=== PATIENT | female | born 1960 | race Caucasian/White ===

== ENCOUNTER 2021-03-10 07:20 | Inpatient (IN) | payer SELFPAY ==
[2021-03-10] VITALS (166 sets, daily range): BP systolic 94–114; BP diastolic 71–85; PULSE 130–140; TEMP 97.3–98; O2SAT 73–100
[~2021-03-10] VITALS: Ht 162.6 cm; Wt 87.6 kg
[~2021-03-10 07:20] MED LIST: ALDACTONE 25MG25 M1 PO; BENICAR 20MG TA20 MG PO; CLEOCIN HC150 MG/CAP PO; DUO-KAPS1 CAP PO; ELIQUIS 5MG PO; FOLIC ACID 11 MG/TA1 PO; HCTZ12.5TAB PO; IMODIUM 2MG CAPS2 MG PO; LASIX 20MG TABL20 MG PO; LEVAQUIN 5500 MG/TAB PO; LEVAQUIN 750MG750 M1 PO; LOPRESSOR 225 MG/TAB PO; LOTENSIN 1010 MG/TAB PO; LOTENSIN HCT 101 TAB PO; LOTENSIN20 MG PO; NORCO 325 MG-101 TAB PO; NORVASC 10MG10 MG PO; PERCOCET 325 MG1 TA2 PO; PREDNISONE20 MG PO; PRINIVIL5 MG PO; PROAIR HFA0.09 MG/AC IH; PROTONIX 40MG T40 MG PO; THIAMINE 1100 MG/TAB PO; TUMS500 MG PO; VICODIN 5/5001 UDTAB PO; XANAX .25M0.25 MG/TA PO
[2021-03-10 08:02] LABS: BASO # 0.1 K/mm3 (0.0-0.2); BASO % 0.9 % (0.0-2.0); EOS # 0.1 K/mm3 (0.0-0.7); EOS % 0.7 % (0.0-4.0); HEMATOCRIT 44.1 % (37.0-47.0); HEMOGLOBIN 14.5 g/dl (12.5-16.0); LYMPH # 3.5 K/mm3 (1.2-3.4); LYMPH % 49.2 % (20.0-51.0); MEAN CELL VOLUME 91 fl (80.0-100.0); MEAN CORPUSCULAR HEMOGLOBIN 30 pg (27-31); MEAN CORPUSCULAR HGB CONC 33 g/dl (33.0-37.0); MEAN PLATELET VOLUME 10.2 fl (7.4-10.4); MONO # 0.4 K/mm3 (0.1-0.6); MONO % 6.1 % (1.7-9.3); PLATELET COUNT 241 K/mm3 (130-400); RED BLOOD COUNT 4.86 M/mm3 (4.10-5.30); REDCELL DISTRIBUTION WIDTH-CV 15.2 % (11.5-14.5)
[2021-03-10 08:49] LABS: ALBUMIN 3.3 gm/dL (3.5-5.0); BILIRUBIN,TOTAL 1.4 mg/dL (0.2-1.2); CALCIUM 8.4 mg/dL (8.4-10.2); CREATININE, serum 1.07 mg/dL (0.57-1.11); MAGNESIUM 1.8 mg/dL (1.6-2.6); PHOSPHOROUS 4.4 mg/dL (2.3-4.7); TOTAL PROTEIN 8.2 gm/dL (6.2-8.1)
[2021-03-10 09:00] LABS: TROPONIN-I 0.079 ng/mL (0.00-0.033)
--- NOTE | 2021-03-10 11:43 | NUR ---
RECEIVED REPORT FROM DIONICIO GONZALEZ. AWAITING ARRIVAL OF PT TO ICU 7.
--- NOTE | 2021-03-10 11:58 | NUR ---
PT ARRIVES TO ICU 7 VIA STRETCHER ON 3L VIA NC. ALL PERSONAL BELONGINGS PLACED IN CLOSET. CELL PHONE AND CITY CARRIER WITHIN REACH. PT ABLE TO STAND TO TRANSFER TO BSC AND THEN TO THE BED WITH X1 ASSIST. CALL LIGHT WITHIN REACH. PLACED ON BEDSIDE CONTINUOUS MONITOR. NOTED HR IS IN AFLUTTER IN THE 140s CURRENTLY. BP STABLE AT THIS TIME BUT IS BOUNCING FROM HIGH 80s TO LOW 100s SYSTOLICALLY. WILL MONITOR CLOSELY.
--- NOTE | 2021-03-10 12:45 | NUR ---
DR RAMIRES AT BEDSIDE DISCUSSING POC WITH PT AND TALKING ABOUT THE NEW MEDICATION GTTS. RN DISCUSSED WITH DR RAMIRES SINCE PT REPORTS THAT SHE HAS NOT BEEN TAKING ANY MEDICATIONS SHE USED TO D/T INSURANCE INUSRANCE FROM WHEN SHE WAS WORKING IN [place] TWO YEARS AGO, THAT SHE HAS NO CURRENT MEDICATIONS AND HAS BEEN SELF MEDICATION WITH DRUGS AND ALCOHOL. PT DOES REPORT SECOND HAND METH SMOKE, USE OF MARIJUANA DAILY AND DRINKING SMIRNOFF DRINKS DAILY TO EASE THE PAIN. REPORTS LAST DRINK WAS AROUND 0400 TODAY AND DID USE MARIJUANA THIS MORNING BEFORE COMING TO THE HOSPITAL. PT STATES SHE LIVES WITH HER SON BUT HE IS GONE FOR HIS JOB FOR PERIODS OF TIME AND KNEW SHE NEEDED TO COME TO THE HOSPITAL BUT WAS WAITING FOR HIM TO COME HOME TO TAKE CARE OF THE DOG WHO DOES NOT GET ALONG WELL WITH MANY PEOPLE BEFORE SHE COULD COME TO THE HOSPITAL. PT STATES SHE KNEW ABOUT A WEEK AGO THAT SHE NEEDED TO GET TO THE HOSPITAL.
--- NOTE | 2021-03-10 13:00 | NUR ---
PT DOES REQUEST TO SPEAK TO A BOTTLE BOOTH ATTENDANT ABOUT INSURNACE SO SHE CAN GET ON MEDS WHEN DC APPROPRAITELY. BOTTLE BOOTH ATTENDANT RANJAN CALLED AT THIS TIME AND MADE AWARE OF REQUEST. WILL AWAIT FOR HER ASSIST.
[2021-03-10 13:50] LABS: PARTIAL THROMBOPLASTIN TIME 30.2 SECONDS (26.0-37.0)
--- NOTE | 2021-03-10 16:00 | NUR ---
ASKED DR RAMIRES TO DISCUSS CODE STATUS WITH PT. SHE DOES SAY DNR BUT WANTS TO THINK ABOUT DNI. PT IS VERY NAUSEOUS DURING DR RAMIRES'S TALK AND KEEPS SAYING " I JUST DO NOT FEEL WELL." PT IS VERY TEARFUL. EXPLAINED TO PT THAT SHE IS ALSO GOING THROUGH WITHDRAWAL ALONG WITH HER HEART FUNCTION NOT DOING SO WELL AND THAT WE ARE MONITORING HER VERY CLOSELY. PT STATES SHE IS SCARED AND ANXIOUS. SEE MAR.
--- NOTE | 2021-03-10 22:30 | NUR ---
1950 RECEIVED PHONE CALL FROM LAB WITH CRITICAL LEVEL OF HEPARIN XA OF 1.21, PLACED HEPARIN DRIP ON HOLD PER PROTOCOL FOR 2 HOURS WILL REDRAW HEPARIN XA AND PTT AT 2150. RESULTS OF HEPARIN XA OBTAINED AT 2150 NOTED RESULTED AT THIS TIME, WITH LEVEL OF 0.47, PER PROTOCOL RESTARTED AT 300 UNITS/HR LESS THAN PREVIOUS DOSE OF 1500 UNITS/HR MAKING NEW DOSE 1200 UNITS/HR, RECHECK WILL BE AT 0430 ON 03/11/21
--- NOTE | 2021-03-10 23:15 | NUR ---
2315 NOTIFIED BY MARIBELL FROM LAB THAT PTT AND HEPARIN XA BLUE TOP LAB TUBE THAT WAS SENT TO LAB AT 2150 WAS "SHORT OF BLOOD AND RESULTS COULD NOT BE RUN" ASKED ABOUT RESULTS THAT WERE POSTED FOR HEPARIN XA ALREADY AND STATED THAT HE WAS GOING TO CANCEL THEM AND RUN THEM ON THE NEW SAMPLE, EXPLAINED THAT MEDICATION ADJUSTMENTS HAD BEEN MADE BASED ON LEVEL THAT WAS POSTED FOR HEPARIN XA OF 0.47. 2319 NEW SAMPLE OBTAINED AND TAKEN TO LAB, MARIBELL WHO WAS WALKING DOWN HALLWAY REQUESTED FOR THIS NURSE TO LEAVE IT ON COUNTER, CAMILO RANG TIMES 2 WITH NO ANSWER SO LEFT ON COUNTER REQUESTED
[2021-03-10 23:56] LABS: COLLECTION METHOD CLEAN CATCH
[2021-03-11] VITALS: BP 118/99; PULSE 131; TEMP 97.7
[2021-03-11 00:20] LABS: PARTIAL THROMBOPLASTIN TIME 104.4 SECONDS (26.0-37.0)
[2021-03-11 00:22] LABS: MUCOUS Present (NOT PRESENT); PH 5 (5-8); TRICYCLIC ANTIDEPRESS URINE NEGATIVE; URINE APPEARANCE Hazy (CLEAR/HAZY); URINE BACTERIA Rare /hpf (NONE SEEN); URINE BILIRUBIN Positive (NEGATIVE); URINE BLOOD 1+ (NEGATIVE); URINE COLOR Amber (YELLOW); URINE GLUCOSE Negative (NEGATIVE); URINE KETONE Negative (NEGATIVE); URINE LEUKOCYTE ESTERASE Negative (NEGATIVE); URINE NITRATE Negative (NEGATIVE); URINE PROTEIN(semi-quant) 2+ (NEGATIVE); URINE UROBILINOGEN >=4.0 (NEGATIVE)
--- NOTE | 2021-03-11 00:58 | NUR ---
NOTIFIED LELIA BLACKWELL OF PRIOR EVENTS WITH HEPARIN XA LEVELS AND CURRENT LEVEL OK PER HER TO OBTAIN HEPARIN XA AT PREVIOUSLY SCHEDULED TIME 03/11/21 1289
[2021-03-11 04:00] VITALS: BP 112/94; PULSE 129; TEMP 97.6
[2021-03-11 04:33] LABS: BASO # 0.1 K/mm3 (0.0-0.2); BASO % 0.7 % (0.0-2.0); GRAN # 5.1 K/mm3 (1.4-6.5); GRAN % 68.3 % (42.2-75.2); HEMATOCRIT 40.7 % (37.0-47.0); HEMOGLOBIN 13.2 g/dl (12.5-16.0); LYMPH # 1.6 K/mm3 (1.2-3.4); LYMPH % 21.5 % (20.0-51.0); MEAN CELL VOLUME 92 fl (80.0-100.0); MEAN CORPUSCULAR HEMOGLOBIN 30 pg (27-31); MEAN CORPUSCULAR HGB CONC 32 g/dl (33.0-37.0); MEAN PLATELET VOLUME 9.8 fl (7.4-10.4); MONO # 0.7 K/mm3 (0.1-0.6); MONO % 9.2 % (1.7-9.3); PLATELET COUNT 180 K/mm3 (130-400); RED BLOOD COUNT 4.45 M/mm3 (4.10-5.30); REDCELL DISTRIBUTION WIDTH-CV 15.2 % (11.5-14.5)
[2021-03-11 04:50] LABS: ALBUMIN 2.8 gm/dL (3.5-5.0); CREATININE, serum 1.64 mg/dL (0.57-1.11); MAGNESIUM 1.7 mg/dL (1.6-2.6); POTASSIUM 4.6 mmol/L (3.5-4.5); TOTAL PROTEIN 6.5 gm/dL (6.2-8.1)
[2021-03-11 05:05] LABS: THYROID STIMULATING HORMONE 1.844 uIU/mL (0.350-4.940)
[2021-03-11 05:15] LABS: TROPONIN-I 0.072 ng/mL (0.00-0.033)
--- NOTE | 2021-03-11 07:27 | NUR ---
RECEIVED BEDSIDE SHIFT REPORT FROM DIONICIO BRITO. PATIENT IS IN BED ON 6L NASAL CANNULA. VITAL SIGNS HAVE BEEN BORDERLINE UNSTABLE. WILL HAVE ECHOCARDIOGRAM TODAY. HAS BEEN ASYMPTOMATIC AND TOLERATING. WILL ASSESS FURTHER. STILL ON HEPARIN DRIP AND AMIODARONE.
[2021-03-11 08:00] VITALS: BP 105/93; PULSE 128; TEMP 96.7
--- NOTE | 2021-03-11 09:03 | NUR ---
DR. RAMIRES AT BEDSIDE. EXPLAINED TO DR. RAMIRES ABOUT PATIENT'S STORY REGARDING MEDICATION REGIMEN PATIENT USES FOR PAIN. DR. RAMIRES TO INVESTIGATE FURTHER.
--- NOTE | 2021-03-11 09:33 | NUR ---
DR. MANRIQUE AT BEDSIDE. WANTING TO SCHEDULE CARDIOVERSION AND COLE TODAY. WILL CALL ANESTHESIA.
--- NOTE | 2021-03-11 09:35 | NUR ---
CALLED CEE IN RADIOLOGY REGARDING COLE CARDIOVERSION.
--- NOTE | 2021-03-11 09:35 | NUR ---
CALLED DR. MANRIQUE TO UPDATE ON TIME FOR COLE/CARDIOVERSION FOR NOW.
--- NOTE | 2021-03-11 09:35 | NUR ---
CALLED ANESTHESIA REGARDING COLE/CARDIOVERSION. SHASTA ECHEVERRIA SAID HE COULD DO IT NOW. WILL SET UP.
--- NOTE | 2021-03-11 09:43 | NUR ---
ANESTHESIA AT BEDSIDE AND HAD FOUND THAT PATIENT HAD HAD BREAKFAST AND WILL RESCHEDULE FOR 1500 TODAY.
--- NOTE | 2021-03-11 10:24 | NUR ---
Head Gauge Unit Operator met with patient to discuss discharge planning. Patient lives in [place] with her son, Prasad (ph#[phone]). Patient states she has lived in [place] for a couple years but [place] is "home" for her and she would eventually like to return there. Patient does not have a current primary care physician and has difficulty affording medications due to lack of insurance. SW consulted David, Financial Counselor. SW also provided [facility] Resource Guide along with drug and alcohol resources. Patient had positive UDS however said that she has been using drugs because she no longer is being prescribed pain medications like she was in [place]. SW advised patient that both [facility] and [facility] can offer primary care without insurance coverage. Patient does not use any DME and is normally independent with ADLS. Patient mentions that she walks her dog daily. Patient does not have Advance Directives but is considering designating her friend, Shruthi Flor (ph#[phone]) who is an RN in [place] as DPOA-HC, however would like to speak with Shruthi about this first. Patient is not and has one child, Prasad. Patient states her parents are but that she has two brothers and a sister. Patient plans to return home upon discharge. Patient advised she has court at 1430 for an "eviction" that is "BS". SW contacted Santa at [facility] [address] and confirmed this, then faxed a document stating that patient is currently hospitalized and cannot attend court today. Discharge Plan: Home with son, may need medication voucher
[2021-03-11 12:00] VITALS: BP 110/92; PULSE 128
--- NOTE | 2021-03-11 14:20 | NUR ---
UPDATED PATIENT'S SISTER LUCIO ON PLAN OF CARE.
--- NOTE | 2021-03-11 15:43 | NUR ---
EVERYONE GATHERED FOR UPDATED COLE/CARDIOVERSION TIME. DID A TIME OUT AT 1513, MEDS WERE PUSHED AT 1515, COLE WAS PERFORMED AND SHOCK WAS DELIVERED AT 1527. PATIENT CONVERTED TO NORMAL SINUS RHYTHYM IN THE 80s. PATIENT HAD TO TAKE MORE TIME TO RECOVER FROM ANESTHESIA. DR. MANRIQUE ORDERED FOR LASIX GTT AND THIS NURSE WAS CONCERNED FOR BLOOD PRESSURE ISSUES CONSIDERING PATIENT WAS HYPOTENSIVE. DR. MANRIQUE CONFORTABLE STILL INITIATING THERAPY.
[2021-03-11 16:00] VITALS: BP 85/70; PULSE 81
--- NOTE | 2021-03-11 16:20 | NUR ---
CALLED DR. MANRIQUE AND EXPRESSED CONCERNS REGARDING INITIATION OF LASIX DRIP WITH HYPOTENSION. AGREEABLE TO LOWER DOSE. ALSO DISCUSSED SWITCHING TO PO ARRYTHMIC DRUGS AND BEGINNING PO ANTICOAGULATION IN A.M. ORDERS PLACED.
--- NOTE | 2021-03-11 18:33 | NUR ---
PATIENT'S SISTER CALLED TO SEE HOW CARDIOVERSION WENT. UPDATED AND ALLOWED SISTER TO SPEAK WITH PATIENT.
[2021-03-12] VITALS (7 sets, daily range): BP systolic 93–120; BP diastolic 62–92; PULSE 71–99; TEMP 97.5–98.9
[2021-03-12 05:18] LABS: BASO % 0.6 % (0.0-2.0); EOS % 0.1 % (0.0-4.0); GRAN # 4.7 K/mm3 (1.4-6.5); GRAN % 70.3 % (42.2-75.2); HEMOGLOBIN 12.3 g/dl (12.5-16.0); LYMPH # 1.4 K/mm3 (1.2-3.4); LYMPH % 20.1 % (20.0-51.0); MEAN CELL VOLUME 90 fl (80.0-100.0); MEAN CORPUSCULAR HEMOGLOBIN 30 pg (27-31); MEAN CORPUSCULAR HGB CONC 34 g/dl (33.0-37.0); MEAN PLATELET VOLUME 10.4 fl (7.4-10.4); MONO # 0.6 K/mm3 (0.1-0.6); MONO % 8.8 % (1.7-9.3); PLATELET COUNT 132 K/mm3 (130-400); RED BLOOD COUNT 4.08 M/mm3 (4.10-5.30); REDCELL DISTRIBUTION WIDTH-CV 15.3 % (11.5-14.5)
[2021-03-12 05:31] LABS: HEMATOCRIT 36.7 % (37.0-47.0)
[2021-03-12 05:34] LABS: CALCIUM 7.7 mg/dL (8.4-10.2); CREATININE, serum 1.33 mg/dL (0.57-1.11)
--- NOTE | 2021-03-12 15:13 | NUR ---
REPORT GIVEN TO DIONICIO CRUZ. DISCUSSED CURRENT PLAN OF CARE, GTTS AND INFUSIONS, AND ACCESS. ALL QUESTIOSN ANSWERED. PT WILL BE GOING TO RM 353.
[2021-03-13] VITALS (7 sets, daily range): BP systolic 85–105; BP diastolic 62–78; PULSE 54–69; TEMP 96.8–98.3; O2SAT 100
[2021-03-13 06:46] LABS: BASO % 0.6 % (0.0-2.0); EOS % 0.6 % (0.0-4.0); GRAN # 3.3 K/mm3 (1.4-6.5); GRAN % 60.9 % (42.2-75.2); HEMOGLOBIN 11.3 g/dl (12.5-16.0); LYMPH # 1.5 K/mm3 (1.2-3.4); LYMPH % 27.9 % (20.0-51.0); MEAN CELL VOLUME 92 fl (80.0-100.0); MEAN CORPUSCULAR HEMOGLOBIN 30 pg (27-31); MEAN CORPUSCULAR HGB CONC 33 g/dl (33.0-37.0); MEAN PLATELET VOLUME 10.9 fl (7.4-10.4); MONO # 0.5 K/mm3 (0.1-0.6); MONO % 9.4 % (1.7-9.3); PLATELET COUNT 122 K/mm3 (130-400); RED BLOOD COUNT 3.76 M/mm3 (4.10-5.30); REDCELL DISTRIBUTION WIDTH-CV 15.5 % (11.5-14.5)
[2021-03-13 06:47] LABS: HEMATOCRIT 34.5 % (37.0-47.0)
[2021-03-13 07:05] LABS: CALCIUM 7.8 mg/dL (8.4-10.2); CREATININE, serum 1.19 mg/dL (0.57-1.11); MAGNESIUM 1.3 mg/dL (1.6-2.6)
--- NOTE | 2021-03-13 07:40 | NUR ---
CRITICAL CHLORIDE OF 88 CALLED TO MALATHI MERAZ
--- NOTE | 2021-03-13 08:30 | NUR ---
Shift assessment complete. Pt sitting up on side of bed eating breakfast. A&Ox4. Heart RRR. Lungs CTA. Sats 93% RA. Generalized mottling and 2+ edema. Denies needs at this time. Continuing to monitor.
--- NOTE | 2021-03-13 10:15 | NUR ---
Received call from hospitalist asking if pt had been minimally responsive this morning as she was not opening eyes or talking during rounds. Went to bedside w/hospitalist team. Pt yelled in response to sternal chest rub but would not open eyes. Pupils sluggish. Vitals obtained and ABG ordered. BP at this time 108/64, HR 65, SpO2 88% on RA. NC placed on at 2 lpm w/sats increasing to 92%. RT at bedside to obtain ABG and pt suddenly A&Ox4. Up working w/PT and OT at this time.
[2021-03-13 10:28] LABS: ARTERIAL BLD GAS O2 SATURATION 96.8 % (92-100); ARTERIAL BLD GAS TCO2 CT 29.2; ARTERIAL BLOOD GAS BASE EXCESS 3.4 (-2-2); ARTERIAL BLOOD GAS PCO2 42.2 mmHg (35-45); ARTERIAL BLOOD GAS PO2 84.3 mmHg (80-100); ARTERIAL BLOOD GAS pH 7.44 (7.35-7.45)
--- NOTE | 2021-03-13 22:48 | NUR ---
Patient assessed around 2049. Alert and oriented x 4. Reports pain to bilateral feet, too soon to give [place], declined APAP. On oxygen at 1 L/min via NC. Telemetry in place. Generalized edema all over with 1+ BUE/trunk, 3+ BLE. Voices no questions, needs, or concerns at this time. Continues on Lasix drip per orders. In bed with call light within reach. Bed alarm on.
[2021-03-14 04:44] VITALS: BP 100/75; PULSE 65; TEMP 98.7
--- NOTE | 2021-03-14 06:05 | NUR ---
Received PRN [place] as requested for pain to legs and feet. Continues on Lasix drip. Voices no questions, needs or concerns at this time. In bed with call light within reach.
[2021-03-14 06:22] LABS: BASO % 0.2 % (0.0-2.0); EOS % 0.5 % (0.0-4.0); GRAN # 2.6 K/mm3 (1.4-6.5); GRAN % 61.2 % (42.2-75.2); HEMOGLOBIN 11.4 g/dl (12.5-16.0); LYMPH % 24.4 % (20.0-51.0); MEAN CELL VOLUME 91 fl (80.0-100.0); MEAN CORPUSCULAR HEMOGLOBIN 30 pg (27-31); MEAN CORPUSCULAR HGB CONC 33 g/dl (33.0-37.0); MEAN PLATELET VOLUME 10.8 fl (7.4-10.4); MONO # 0.6 K/mm3 (0.1-0.6); PLATELET COUNT 120 K/mm3 (130-400); RED BLOOD COUNT 3.85 M/mm3 (4.10-5.30); REDCELL DISTRIBUTION WIDTH-CV 15.6 % (11.5-14.5)
[2021-03-14 06:24] LABS: HEMATOCRIT 34.9 % (37.0-47.0)
[2021-03-14 06:36] LABS: CALCIUM 7.8 mg/dL (8.4-10.2); CREATININE, serum 1.08 mg/dL (0.57-1.11); MAGNESIUM 1.5 mg/dL (1.6-2.6); POTASSIUM 3.8 mmol/L (3.5-4.5)
[2021-03-14 07:14] VITALS: BP 113/72; PULSE 72; TEMP 97.5
--- NOTE | 2021-03-14 10:20 | NUR ---
Patient requested PRN xanax w/ her morning meds. Patient continues to use bedside commode and is a SBA. Patient does not have any complaints this morning.
[2021-03-14 13:01] VITALS: BP 104/69; PULSE 68; TEMP 97.4
[2021-03-14 17:19] VITALS: BP 112/76; PULSE 66; TEMP 98.2
--- NOTE | 2021-03-14 17:58 | NUR ---
Patient has done well today, and is very pleasant. Patient has a TLIJ on the right side, w/ 2 peripheral IVs in the ACs. These were removed as they were leaky. Patient assisted w/ bed bath by PCT.
[2021-03-14 20:03] VITALS: BP 108/82; PULSE 63; TEMP 97.5
--- NOTE | 2021-03-14 22:57 | NUR ---
Patient assessed around 1954. Alert and oriented, and able to make needs known. Reports leve 8 pain to BLE. TLC to right IJ. Given PRN Xanax as requested. Given PRN [place] around 2249. Continues to have 3+ edema to BLE, 1+ to BUE. Continues on no free water restriction. Voices no further questions, needs, or concerns at this time. In bed with call light within reach.
[2021-03-14 23:21] VITALS: BP 111/77; PULSE 65; TEMP 97.8
[2021-03-15 04:59] VITALS: BP 111/77; PULSE 67; TEMP 97.9
[2021-03-15 06:08] LABS: BASO % 0.4 % (0.0-2.0); EOS % 0.4 % (0.0-4.0); GRAN # 2.6 K/mm3 (1.4-6.5); GRAN % 57.2 % (42.2-75.2); HEMOGLOBIN 11.6 g/dl (12.5-16.0); LYMPH # 1.3 K/mm3 (1.2-3.4); LYMPH % 27.5 % (20.0-51.0); MEAN CELL VOLUME 89 fl (80.0-100.0); MEAN CORPUSCULAR HEMOGLOBIN 30 pg (27-31); MEAN CORPUSCULAR HGB CONC 34 g/dl (33.0-37.0); MEAN PLATELET VOLUME 10.1 fl (7.4-10.4); MONO # 0.7 K/mm3 (0.1-0.6); MONO % 14.1 % (1.7-9.3); PLATELET COUNT 133 K/mm3 (130-400); RED BLOOD COUNT 3.85 M/mm3 (4.10-5.30); REDCELL DISTRIBUTION WIDTH-CV 15.9 % (11.5-14.5)
[2021-03-15 06:12] LABS: HEMATOCRIT 34.4 % (37.0-47.0)
--- NOTE | 2021-03-15 06:12 | NUR ---
Patient recieved PRN [place] and Xanax as requested during the night. Has voiced no further questions, needs, or concerns at this time. In bed with call light within reach.
[2021-03-15 06:29] LABS: CALCIUM 8.1 mg/dL (8.4-10.2); CREATININE, serum 0.88 mg/dL (0.57-1.11); MAGNESIUM 1.6 mg/dL (1.6-2.6); POTASSIUM 4.1 mmol/L (3.5-4.5)
[2021-03-15 07:08] LABS: CREATININE, serum 0.88 mg/dL (0.57-1.11); FRACTIONAL EXCRETION OF NA+ 0.49 %
[2021-03-15 08:10] VITALS: BP 108/65; PULSE 69; TEMP 98.2
[2021-03-15] MEDS ORDERED: LIPITOR 80MG80 MG PO (08:29)
[2021-03-15] MEDS ORDERED: XARELTO20 MG PO (08:29)
[2021-03-15] MEDS ORDERED: TOPROL XL 25MG25 MG PO (08:30)
[2021-03-15] MEDS ORDERED: LASIX 40MG TABL40 MG PO (08:30)
[2021-03-15] MEDS ORDERED: ZESTRIL2.5 MG PO (08:31)
[2021-03-15] MEDS ORDERED: ASPIRIN 81M81 MG/TA2 PO (08:33)
--- NOTE | 2021-03-15 08:38 | NUR ---
Patient resting in bed upon entering the room. Does not have any complaints at this time. This RN provided the patient w/ fresh apple juice to take her medications with. Patient had already eaten breakfast, and is tolerating PO intake well. Patient moving around independtly in the room, gait is steady now that swelling has decreased in the lower extremeties.
[2021-03-15 11:46] VITALS: BP 114/71; PULSE 65; TEMP 98.1
[2021-03-15] MEDS ORDERED: PACERONE200 MG PO (11:46)
[2021-03-15 15:11] LABS: HEMATOCRIT 37.7 % (37.0-47.0); HEMOGLOBIN 12.6 g/dl (12.5-16.0)
--- NOTE | 2021-03-15 15:21 | NUR ---
The patient is to discharge back home with her son today, 03/15. The patient is in need of a medication voucher. TANG provided the patient with a medication voucher to [facility]. Total $69.55. TANG faxed the med voucher and the patient's scripts to Ernesto at [facility]. The patient reports that she will also need a ride home. She states that she would prefer to just return home and not have to stop by [employer] TANG contacted [facility] and requested that they deliver the patient's meds to her home address. [facility] reports that they can deliver the meds to her home today. TANG provided the patient's RN with the taxi voucher. The patient's RN then notified TANG that they removed her IJ line to go home. The patient then bent over and had extensive bleeding. The clinical team would like to monitor the patient for a few hours before she goes home. A transportation time home is undetermined, due to her having to stay for a few hours for monitoring and then with the taxi. [facility] closes at 1800. TANG updated Ernesto at [facility]. Ernesto reports that they can deliver the patient's medications to her home tomorrow. TANG updated the patient's RN and the patient. No additional needs at this time.
--- NOTE | 2021-03-15 16:41 | NUR ---
Patient discharged home, ride provided by [employer], voucher given by TANG. Patient was provided w/ a 3wk supply of xarelto from cardiology. Meds to be delivered to patient by [facility], medications given tonight to cover her doses. Patient escorted out by [facility]... At approx 1350 this RN pulled the patient central line. Pressure was held for appox. 10mins, and bleeding had not stopped. This RN called Yvonne - Charge, to notify her and ask for assistance. Yvonne applied pressure for approx. 10mins and bleeding stopped. Tegaderm with gauze was applied, and was CDI. Patient was instructed to lay flat for 10mins and call when she was ready to get dressed. At approx. 1420, this RN was called into the room. Upon entering the room, this RN saw the PCT sitting and holding pressure at the site. The patient's gown and pants were covered in blood, there was a small puddle of blood on the floor. Eve ROWELL, was notified and came to assess. H&H was ordered, pressure dressing applied after 30mins of manual pressure, VSS.
== END 2021-03-15 16:30 | disposition home health service (06) | DRG 280 ==
LOC: COL.ER 07:20 → ICU 10:12 → IMCU 03-11 19:17 → MEDICAL 03-12 15:25
PROVIDERS: Emergency Medicine; Physician Assistant; ADMIT Internal Medicine
PROC: 05HM33Z Insertion of Infusion Device into Right Internal Jugular Vein, Percutaneous Approach (ICD-10-PCS; principal; 2021-03-10)
PROC: 5A2204Z Restoration of Cardiac Rhythm, Single (ICD-10-PCS; 2021-03-11)
PROC: B24BZZ4 Ultrasonography of Heart with Aorta, Transesophageal (ICD-10-PCS; 2021-03-11)
DX: I11.0 Hypertensive heart disease with heart failure (principal); J96.01 Acute respiratory failure with hypoxia; I21.A1 Myocardial infarction type 2; I50.21 Acute systolic (congestive) heart failure; I48.92 Unspecified atrial flutter; I47.1 Supraventricular tachycardia; E87.1 Hypo-osmolality and hyponatremia; G89.29 Other chronic pain; F17.210 Nicotine dependence, cigarettes, uncomplicated; F10.10 Alcohol abuse, uncomplicated; I48.91 Unspecified atrial fibrillation; K21.9 Gastro-esophageal reflux disease without esophagitis; M54.30 Sciatica, unspecified side; E66.9 Obesity, unspecified; F15.10 Other stimulant abuse, uncomplicated; I34.0 Nonrheumatic mitral (valve) insufficiency; I42.9 Cardiomyopathy, unspecified; J44.9 Chronic obstructive pulmonary disease, unspecified; E83.42 Hypomagnesemia; E87.8 Other disorders of electrolyte and fluid balance, not elsewhere classified; Z20.822 Contact with and (suspected) exposure to COVID-19
CPT/HCPCS: 99223-AI; 99232-AI; 99233-AI; 99239; C1751; J0282; J1644; J1940; J2060; J2405; J2704; J3475; J7060

== ENCOUNTER 2021-05-30 17:59 | Inpatient (IN) | payer SELFPAY ==
[~2021-05-30] VITALS: Ht 152.4 cm; Wt 72.0 kg
[~2021-05-30 17:59] MED LIST changes: +ASPIRIN 81M81 MG/TA2 PO; +CEPHALEXIN500 M1 PO; +LASIX 40MG TABL40 MG PO; +LIPITOR 80MG80 MG PO; +PACERONE200 MG PO; +TOPROL XL 25MG25 MG PO; +XARELTO20 MG PO; +ZESTRIL2.5 MG PO
[2021-05-30 19:46] LABS: BASO % 0.5 % (0.0-2.0); EOS % 0.2 % (0.0-4.0); GRAN % 74.4 % (42.2-75.2); HEMATOCRIT 40.6 % (37.0-47.0); HEMOGLOBIN 13.5 g/dl (12.5-16.0); LYMPH # 1.2 K/mm3 (1.2-3.4); LYMPH % 14.9 % (20.0-51.0); MEAN CELL VOLUME 92 fl (80.0-100.0); MEAN CORPUSCULAR HEMOGLOBIN 31 pg (27-31); MEAN CORPUSCULAR HGB CONC 33 g/dl (33.0-37.0); MONO # 0.8 K/mm3 (0.1-0.6); MONO % 9.8 % (1.7-9.3); PLATELET COUNT 267 K/mm3 (130-400); RED BLOOD COUNT 4.43 M/mm3 (4.10-5.30); REDCELL DISTRIBUTION WIDTH-CV 18.4 % (11.5-14.5)
[2021-05-30 19:52] LABS: INR 1.3 (0.8-3.0); PROTHROMBIN TIME 14.5 SECONDS (9.7-12.8)
[2021-05-30 19:55] LABS: PARTIAL THROMBOPLASTIN TIME 32.9 SECONDS (26.0-37.0)
[2021-05-30 20:43] LABS: ALBUMIN 2.7 gm/dL (3.5-5.0); BILIRUBIN,TOTAL 1.6 mg/dL (0.2-1.2); CALCIUM 7.3 mg/dL (8.4-10.2); CREATININE, serum 0.68 mg/dL (0.57-1.11); TOTAL PROTEIN 6.6 gm/dL (6.2-8.1)
[2021-05-30 20:45] LABS: POTASSIUM 2.8 mmol/L (3.5-4.5)
[2021-05-30 20:49] LABS: TROPONIN-I 0.03 ng/mL (0.00-0.033)
[2021-05-30 23:06] LABS: COLLECTION METHOD CLEAN CATCH
[2021-05-30 23:15] LABS: MUCOUS Present (NOT PRESENT); PH 6 (5-8); SQUAMOUS EPITHELIAL 0-2 /hpf (0-10); URINE APPEARANCE Clear (CLEAR/HAZY); URINE BACTERIA None Seen /hpf (NONE SEEN); URINE BILIRUBIN Negative (NEGATIVE); URINE BLOOD 1+ (NEGATIVE); URINE COLOR Yellow (YELLOW); URINE GLUCOSE Negative (NEGATIVE); URINE KETONE Negative (NEGATIVE); URINE LEUKOCYTE ESTERASE Negative (NEGATIVE); URINE NITRATE Negative (NEGATIVE); URINE PROTEIN(semi-quant) Negative (NEGATIVE); URINE RBC 0-2 /hpf (0-2); URINE UROBILINOGEN >=4.0 (NEGATIVE); URINE WBC 0-2 /hpf (0-2)
[2021-05-31] VITALS (226 sets, daily range): BP systolic 106–147; BP diastolic 41–92; PULSE 80–89; TEMP 97.6–97.8; O2SAT 39–100
[2021-05-31 03:42] LABS: TRICYCLIC ANTIDEPRESS URINE NEGATIVE
[2021-05-31 05:20] LABS: CALCIUM 7.7 mg/dL (8.4-10.2); CREATININE, serum 0.77 mg/dL (0.57-1.11); POTASSIUM 3.7 mmol/L (3.5-4.5)
[2021-05-31 09:44] LABS: HEMATOCRIT 37.7 % (37.0-47.0); HEMOGLOBIN 12.5 g/dl (12.5-16.0); MEAN CELL VOLUME 91 fl (80.0-100.0); MEAN CORPUSCULAR HEMOGLOBIN 30 pg (27-31); MEAN CORPUSCULAR HGB CONC 33 g/dl (33.0-37.0); MEAN PLATELET VOLUME 9.3 fl (7.4-10.4); PLATELET COUNT 228 K/mm3 (130-400); RED BLOOD COUNT 4.15 M/mm3 (4.10-5.30); REDCELL DISTRIBUTION WIDTH-CV 18.6 % (11.5-14.5)
[2021-05-31 10:00] LABS: ANION GAP 9 mmol/L (7-16); BLOOD UREA NITROGEN 12 mg/dL (10-20); CALCIUM 7.6 mg/dL (8.4-10.2); CARBON DIOXIDE 30 mmol/L (22-29); CHLORIDE 91 mmol/L (98-107); GLUCOSE 151 mg/dL (70-99); MAGNESIUM 1.2 mg/dL (1.6-2.6); SODIUM 130 mmol/L (136-145)
[2021-05-31 10:20] LABS: LYMPHOCYTE 4 % (20.0-51.0); NEUTROPHILS 91 % (42.0-75.2)
[2021-05-31 10:21] LABS: BAND 3 % (0-10); BASOPHIL 1 % (0-2); THYROID STIMULATING HORMONE 4.855 uIU/mL (0.350-4.940); TROPONIN-I 0.022 ng/mL (0.00-0.033)
[2021-05-31 10:22] LABS: ALCOHOL(ethanol),MEDICAL < 10 mg/dL (0-10); ANISOCYTOSIS 1+; PLATELET ESTIMATE NORMAL (NORMAL)
--- NOTE | 2021-05-31 10:23 | NUR ---
material requirements worker spoke with Ela ([employer]ult [employer]) and confirmed that there is an open case at this time. Ela states that patient has been kicked out of several motels and that [facility] can [facility]. Ela provided name of "sister" in [place] (Shruthi Flor #[phone]).
--- NOTE | 2021-05-31 12:36 | NUR ---
Cryolite Recovery Operator met with patient to discuss discharge planning. Patient advised that she is homeless after being evicted from her apartment recently. Patient states she was charged with criminal tresspassing and desruction to property. Patient states she has been sleeping at the post office or in the [facility]. Pateint has a son, Prasad (ph#[phone]) that lives in [place] however patient states she cannot stay with him as he doesn't care much about her and tends to get her in trouble. Patient states that Prasad started using meth about a year ago which hasn't helped the situation. Patient states she needs help with finding a place to stay. Patient has stayed at [facility] but was recently kicked out. Patient was set up with Dr. Pickett at [facility] but has not been seen in a couple years. Patient expressed that she wants to find somewhere for her and her puppy to stay. Patient advised her dog is staying with a groomer she knew from [employer]. SW discussed Advance Directives with patient and explained that patient's son, Prasad would be her legal next of kin as she is not and has no other children. Patient does not want Prasad to make any medical decisions on her behalf and wanted to complete the DPOA-HC form designating Shruthi Flor (ph#[phone]) who lives in [place], [place]. Patient stated this is her sister. SW assisted patient in completing the form then SW and RN provided witness signature. SW placed copy in chart and provided original and copies to patient. SW discussed patient's self pay status and patient would like to apply for Medicaid. TANG consulted [facility] Financial Counselor. Discharge Plan: Unknown at this time, patient is homeless
--- NOTE | 2021-05-31 14:36 | NUR ---
Rolling Down Machine Operator contacted Shruthi Flor and notified her that patient designated her as DPOA-HC. Shruthi verbalized understanding and is agreeable to this.
[2021-05-31 19:00] LABS: CALCIUM 7.5 mg/dL (8.4-10.2); CREATININE, serum 0.74 mg/dL (0.57-1.11); MAGNESIUM 1.5 mg/dL (1.6-2.6); POTASSIUM 3.6 mmol/L (3.5-4.5)
[2021-06-01] VITALS (14 sets, daily range): BP systolic 122–150; BP diastolic 77–98; PULSE 77–89; TEMP 97.7–98.9
--- NOTE | 2021-06-01 06:20 | NUR ---
ASSESSMENT COMPLETE FOR THIS SHIFT. PT PACING THE ROOM, SEEMING REAL AGITATED AND SHACKING. PT'S ABSTINENCE SCORE WAS A 6. PT GIVEN ATIVAN. A COUPLE OF HOURS LATE, I WHEN IT TO CHECK ON PT AND HER FINGERS WERE BLUE, AND SHE WAS NOT RESPONDING TO ME SHOUTING HER NAME OR STERNUM RUB. I WAS FINIALLY ABLE TO WAKE PT, HOWEVER IT WAS HARD TO KEEP HER AWAKE AND SHE WAS FOUND TO HAVE AN O2 OF 66 THAT WENT UP TO 75 AFTER A BIT. PT PLACED ON O2, HOSPITALIST CALLED AND RESPIRATORY CALLED. PT'S O2 WAS ABLE TO RISE INTO THE HIGH 90'S ON O2. HOSPITALIST FELT THE ATIVAN WAS TO BLAME, PT WAS GIVEN 2MG ORAL. HOSPITALIST WANTED ANY ADDITIONAL ATIVAN DOSES CUT IN HALF. PT NOT GIVEN ANY MORE ATIVAN TONIGHT. PT DENIED PALPITATIONS, N,V,D OR DIZZINESS. PT CONTINUED THROUGHOUT THE NIGHT, TO DOZING OFF WHILE TALKING OR SITTING, ALMOST FELLING OFF THE BED AT TIMES. WILL CONTINUE TO MONITOR PT CLOSELY. PT EXPRESSED NO OTHER NEEDS AT THIS TIME. CALL LIGHT WITHIN REACH.
[2021-06-01 06:41] LABS: HEMOGLOBIN 11.4 g/dl (12.5-16.0); MEAN CELL VOLUME 93 fl (80.0-100.0); MEAN CORPUSCULAR HEMOGLOBIN 30 pg (27-31); MEAN CORPUSCULAR HGB CONC 33 g/dl (33.0-37.0); MEAN PLATELET VOLUME 9.3 fl (7.4-10.4); PLATELET COUNT 228 K/mm3 (130-400); RED BLOOD COUNT 3.78 M/mm3 (4.10-5.30); REDCELL DISTRIBUTION WIDTH-CV 18.5 % (11.5-14.5)
[2021-06-01 06:44] LABS: HEMATOCRIT 35.1 % (37.0-47.0)
[2021-06-01 06:57] LABS: ALBUMIN 2.6 gm/dL (3.5-5.0); BILIRUBIN,TOTAL 1.2 mg/dL (0.2-1.2); CALCIUM 7.3 mg/dL (8.4-10.2); CHOLESTEROL RISK RATIO 3.6; CREATININE, serum 0.71 mg/dL (0.57-1.11); MAGNESIUM 1.3 mg/dL (1.6-2.6); POTASSIUM 3.4 mmol/L (3.5-4.5); TOTAL PROTEIN 6.7 gm/dL (6.2-8.1)
[2021-06-01 07:16] LABS: BAND 7 % (0-10); LYMPHOCYTE 4 % (20.0-51.0); NEUTROPHILS 88 % (42.0-75.2); PLATELET ESTIMATE NORMAL (NORMAL)
[2021-06-01 07:17] LABS: ANISOCYTOSIS 1+
[2021-06-02] VITALS (8 sets, daily range): BP systolic 115–140; BP diastolic 71–96; PULSE 76–89; TEMP 97.7–99.4
[2021-06-02 06:36] LABS: CALCIUM 7.5 mg/dL (8.4-10.2); CREATININE, serum 0.73 mg/dL (0.57-1.11); MAGNESIUM 1.6 mg/dL (1.6-2.6); POTASSIUM 3.8 mmol/L (3.5-4.5)
--- NOTE | 2021-06-02 10:46 | NUR ---
PT RESTING IN BED. MORNING MEDICATIONS GIVEN. SHIFT ASSESSMENT COMPLETED. PT REQUESTING PAIN MEDICATION FOR SIATIC PAIN. PT WEEPY THIS MORNING BECAUSE OF HER HOME SITUATION AND POSSIBLY HAVING TO GIVE UP HER DOG. IS CURRENTLY ON LASIX GTT AT 5.5ML/HR. DENIES NEEDS AT THIS TIME. WOUNDS TO L BREAST IS SCABBED OVER, DISCUSSED WITH DR. RAMIRES. WILL CONTINUE TO MONITOR.
--- NOTE | 2021-06-02 17:47 | NUR ---
PT HAS HAD UNEVENTFUL DAY, SHE HAS BEEN SLEEPING THROUGHOUT MOST OF IT. DUENAS HAS BEEN DRAINING RED URINE THROUGHOUT DAY. PT NOW COMPLAINS OF 8/10 SIATICA PAIN AND REQUEST A PAIN PILL. SHE STATES IT "COMES IN WAVES." LASIX GTT HAS BEEN INFUSING AT 5.5ML/HR. WILL CONTINUE TO MONITOR.
[2021-06-03 00:22] VITALS: BP 134/90; PULSE 78; TEMP 97.9
[2021-06-03 03:16] VITALS: BP 122/81; PULSE 77; TEMP 97.8
--- NOTE | 2021-06-03 06:00 | NUR ---
ASSESSMENT COMPLETE FOR THIS SHIFT. PT IN BED DISTRESSED AND CRYING. PT COMPLAINED OF SCIATIC NERVE PAIN SHE RATED AN 8. PT GIVEN NORCO FOR PAIN. PT FELT THE NORCO WORKED GREAT FOR HER PAIN AND WANTED MORE WHEN SHE COULD GET IT. WHENEVER IT'S CLOSE TO 4HRS, PT CRIES IN PAIN AND ASKS FOR "THE NORCO." PT DENIED PALPITATIONS, N,V,D OR DIZZINESS. PT ASKED FOR FOOD AND GRAPE JUICE THOUGHOUT THE NIGHT. PT STAYED WITHIN HER 1500ML RESTRICTION ON FLUIDS. PT EXPRESSED NO OTHER NEEDS AT THIS TIME. CALL LIGHT WITHIN REACH.
[2021-06-03 06:54] LABS: CALCIUM 7.1 mg/dL (8.4-10.2); CREATININE, serum 0.73 mg/dL (0.57-1.11); MAGNESIUM 1.6 mg/dL (1.6-2.6); POTASSIUM 3.6 mmol/L (3.5-4.5)
--- NOTE | 2021-06-03 07:32 | NUR ---
FELY Jaffe NOTIFIED OF CRITICAL CHLORIDE, NO INTERVENTIONS AT THIS TIME.
[2021-06-03 07:54] VITALS: BP 137/96; PULSE 77; TEMP 97.6
--- NOTE | 2021-06-03 09:41 | NUR ---
PT SITTING UP IN BED. MORNING MEDICATIONS GIVEN. SHIFT ASSESSMENT COMPLETED. PICC LINE FLUSHES AND HAS GOOD BLOOD RETURN. PT COMPLAINS OF SIATICA PAIN, PRN PAIN MEDICATION PROVIDED. DENIES ANY OTHER NEEDS. DUENAS DRAINING YELLOW URINE WITH SMALL CLOTS. LASIX GTT INFUSING AT 5.5ML/HR. WILL CONTINUE TO MONITOR.
[2021-06-03 12:17] VITALS: BP 125/74; PULSE 76; TEMP 98.1
--- NOTE | 2021-06-03 16:10 | NUR ---
Letitia from [facility]PS called asking for a discharge update. I informed her of possible discharge tomorrow. Letitia states that the patient is restricted from [facility] until the 16th of this month. After the 16 she is able to return. Letitia reports that she has spoken with the patients sister and her sister is willing to pay to place the patient in a hotel until the . Letitia is going to speak with her spinning supervisor to see about the possibility of splitting the cost at the [employer] [facility] in [place] ($424.27 for 11 nights). I provided Letitia with the patient's toxicology screen. She will touch base tomorrow.
[2021-06-03 16:31] VITALS: BP 121/80; PULSE 71; TEMP 98.5
[2021-06-03 20:14] VITALS: BP 129/84; PULSE 77; TEMP 98.4
--- NOTE | 2021-06-03 21:52 | NUR ---
ALERT ANDOX4. DENIES SOA, CHEST PAIN OR DIZZY. REPORT LOWER BACK/SIATICA NERVER PAIN-NORCO GIVEN. OFFERED HEAT. LASIX RUNNING PER ORDER. PM MEDS. POC DISCUSSED. CALL LIGHT WI REACH.
[2021-06-04 03:54] VITALS: BP 113/67; PULSE 71; TEMP 98.3
[2021-06-04 04:02] VITALS: BP 18/57; PULSE 76; TEMP 97.7
--- NOTE | 2021-06-04 06:05 | NUR ---
RESTED THROUGH THE NIGHT WITHOUT INCIDENT. CALL LIGHT WI REACH.
[2021-06-04 07:39] VITALS: BP 116/73; PULSE 71; TEMP 97.9
--- NOTE | 2021-06-04 09:52 | NUR ---
PT SITTING UP IN BED. MORNING MEDICATIONS GIVEN. SHIFT ASSESSMENT COMPLETED. PT STATES SHE FEELS BETTER TODAY AND BREATHING HAS IMPROVED. LUNGS SOUNDS STILL HAVE A SMALL AMOUNT OF WHEEZING BUT SOUNDS IMPROVED OVER ALL. PT STILL EDEMATOUS TO BLE. PICC LINE FLUSHES AND HAS GOOD BLOOD RETURN. STATES HER SIATICA PAIN HAS IMPROVED. WILL CONTINUE TO MONITOR.
[2021-06-04] MEDS ORDERED: MAG-OX 400400 MG/TAB PO (11:04)
[2021-06-04] MEDS ORDERED: OMNICEF 300MG300 MG PO ×2 (11:05)
[2021-06-04] MEDS ORDERED: DOXYCYCLINE HY100 MG PO ×2 (11:05)
[2021-06-04 11:50] VITALS: BP 119/71; PULSE 75; TEMP 97.7
--- NOTE | 2021-06-04 14:18 | NUR ---
The patient is to tentatively discharge tomorrow now. TANG notified Ela with APS. Ela states that the patient's sister, Shruthi, plans on paying for the hotel in [facility]. She states that the patient has a history of bringing her dog to places and [facility]PS cannot help pay for the hotel if she brings the dog. She states that it makes APS responsible for any damages that the dog may cause to the hotel. TANG attempted to contact the patient's sister, Shruthi, to update on discharge date and to follow up on the hotel. TANG left her a voicemail.
[2021-06-04 16:33] VITALS: BP 116/79; PULSE 78; TEMP 98.2
[2021-06-04 20:28] VITALS: BP 116/65; PULSE 77; TEMP 98.2
[2021-06-05] VITALS (10 sets, daily range): BP systolic 101–128; BP diastolic 0–74; PULSE 69–78; TEMP 97.7–99.4
--- NOTE | 2021-06-05 02:22 | NUR ---
PT SHOWERED TONIGHT. LASIX GTT CONTINUE PER ORDER ALONG Fidencio DUENAS. POSSIBLE DC TODAY - POC DISCUSSED. CALL LIGHT WI REACH. PRECAUTIONS MAINTANED.
[2021-06-05 06:40] LABS: POTASSIUM 3.4 mmol/L (3.5-4.5)
--- NOTE | 2021-06-05 08:46 | NUR ---
DUENAS DISCONTINUED AT THIS TIME. DRAINED 425 FROM BAG AT TIME OF DISCONTINUATION. PT DENIES ANY OTHER CONCERNS RIGHT NOW. PT IS ABLE TO GET UP AND AMBULATE WITHOUT TROUBLE. NO OTHER CONCERNS AT THIS TIME WILL CONTINUE TO MONITOR.
[2021-06-05 13:19] LABS: MEAN CELL VOLUME 96 fl (80.0-100.0); MEAN CORPUSCULAR HGB CONC 32 g/dl (33.0-37.0); MEAN PLATELET VOLUME 9.6 fl (7.4-10.4); PLATELET COUNT 253 K/mm3 (130-400); RED BLOOD COUNT 2.38 M/mm3 (4.10-5.30); REDCELL DISTRIBUTION WIDTH-CV 17.7 % (11.5-14.5)
[2021-06-05 13:20] LABS: HEMATOCRIT 22.8 % (37.0-47.0); HEMOGLOBIN 7.2 g/dl (12.5-16.0); MEAN CORPUSCULAR HEMOGLOBIN 30 pg (27-31)
--- NOTE | 2021-06-05 13:37 | NUR ---
TANG contacted the patient's sister, Shruthi, this morning. Shruthi states that she would book a hotel for the patient today and would contact SW back once she did. Ela, APS worker, then contacted TANG. Ela states that she was able to beg and talk to [facility] some more and they may allow the patient to come back to [facility] when she discharges. They would need to do some re-arranging. Ela states that she feels like [facility] would be a better fit for the patient than the hotel. TANG attempted to contact the patient's sister back to update. She did not answer and her voicemail box is full, so SW was unable to leave a voicemail. TANG then received a voicemail from Shruthi, stating that she had booked the patient a reservation at [facility] in [place]. Reservation#[id number]. The hospitalist then notified TANG that the patient would need to stay another day. TANG notified Ela with [facility]PS of tentative discharge date now and of her sister booking the hotel. Ela states that she is still waiting to hear back on whether [facility] is good with taking the patient back sooner than the 16h. Ela states that she will also contact the patient's sister. TANG contacted the patient's sister, Shruthi, and updated her on the above. Shruthi states that she will try and move the reservation until tomorrow. Shruthi will await a phone call from this TANG or Ela on whether the patient can go to [facility] now or not.
[2021-06-05 13:40] LABS: CALCIUM 7.3 mg/dL (8.4-10.2); CREATININE, serum 0.75 mg/dL (0.57-1.11)
[2021-06-05 15:46] LABS: HEMATOCRIT 21.8 % (37.0-47.0); HEMOGLOBIN 6.9 g/dl (12.5-16.0)
--- NOTE | 2021-06-05 16:00 | NUR ---
HGB WAS CRITICAL AT 6.9, LELIA STANLEY NOTIFIED. DRAWING TYPE AND SCREEN FOR PRBCs. NO OTHER CONCERNS AT THIS TIME.
--- NOTE | 2021-06-05 20:16 | NUR ---
ALERT AND OX4. OCC DIZZY PER PT. HEMOGLOBIN LOW- TRANS PRBC 1 UNIT STARTED AT 2007. BETTY, RN STAYING IN ROOM FIRST 15 MIN OF TRANSFUSION. CONSENT SIGNED
--- NOTE | 2021-06-05 20:35 | NUR ---
TX GIVEN VIA MASK PER PT PREFERENCE, TOLERATED WELL. PT ASKED ME NOT TO WAKE HER IN THE MIDDLE OF THE NOC IF SHE IS SLEEPING WELL.
--- NOTE | 2021-06-05 22:49 | NUR ---
BLOOD TRANSFUSED W NO REACTION. WILL CHECK HEMOGLOBIN IN 1 HR.
[2021-06-06] VITALS (7 sets, daily range): BP systolic 107–134; BP diastolic 61–81; PULSE 67–74; TEMP 97.6–98.7
[2021-06-06 00:40] LABS: HEMATOCRIT 23.1 % (37.0-47.0); HEMOGLOBIN 7.7 g/dl (12.5-16.0)
--- NOTE | 2021-06-06 02:11 | NUR ---
PT NOT AVAILABLE AT THIS TIME. BED BEING CLEANED AND PT IN BATHROOM.
[2021-06-06 06:36] LABS: BASO % 0.1 % (0.0-2.0); EOS % 0.1 % (0.0-4.0); GRAN # 7.4 K/mm3 (1.4-6.5); GRAN % 71.3 % (42.2-75.2); LYMPH # 1.7 K/mm3 (1.2-3.4); LYMPH % 16.3 % (20.0-51.0); MEAN CELL VOLUME 93 fl (80.0-100.0); MEAN CORPUSCULAR HGB CONC 33 g/dl (33.0-37.0); MEAN PLATELET VOLUME 9.6 fl (7.4-10.4); MONO # 1.2 K/mm3 (0.1-0.6); MONO % 11.7 % (1.7-9.3); PLATELET COUNT 259 K/mm3 (130-400); REDCELL DISTRIBUTION WIDTH-CV 16.8 % (11.5-14.5)
[2021-06-06 06:39] LABS: HEMATOCRIT 22.2 % (37.0-47.0); HEMOGLOBIN 7.3 g/dl (12.5-16.0); MEAN CORPUSCULAR HEMOGLOBIN 30 pg (27-31)
[2021-06-06 06:47] LABS: ALBUMIN 2.3 gm/dL (3.5-5.0); CALCIUM 7.4 mg/dL (8.4-10.2); CREATININE, serum 0.75 mg/dL (0.57-1.11); MAGNESIUM 1.5 mg/dL (1.6-2.6); PHOSPHOROUS 3.4 mg/dL (2.3-4.7); POTASSIUM 3.4 mmol/L (3.5-4.5)
--- NOTE | 2021-06-06 13:37 | NUR ---
The hospitalist notified TANG that the patient is scheduled to undergo an endoscopy tomorrow. The patient may be able to discharge later tomorrow, if the endoscopy is normal. If not, she will be here longer. TANG notified Ela with APS. Ela states that she is still waiting to hear back from [facility] on if they can take the patient back sooner than the 16th. TANG contacted and updated the patient's sister, Shruthi.
--- NOTE | 2021-06-06 19:11 | NUR ---
PT HAD UNEVENTFUL DAY. TOOK MEDICATIONS ORDERED. EGD/COLON IS PLANNED FOR TOMORROW IN THE AFTERNOON. POTASSIUM WAS REPLACED VIA IV. NO OTHER CONCERNS WITH THIS PATIENT. REPORT GIVEN TO DIONICIO BAKER.
[2021-06-06 20:01] LABS: HEMATOCRIT 20.4 % (37.0-47.0); HEMOGLOBIN 6.9 g/dl (12.5-16.0)
--- NOTE | 2021-06-06 20:18 | NUR ---
PT NOT AVAILABLE FOR TX AT THIS TIME.
--- NOTE | 2021-06-06 21:28 | NUR ---
TX GIVEN VIA MASK, TOLERATED WELL. PT REQUESTED I NOT WAKE HER UP FOR 0200 TX IF SHE IS SLEEPING.
[2021-06-07] VITALS (9 sets, daily range): BP systolic 105–137; BP diastolic 59–103; PULSE 63–77; TEMP 97.4–98.4
[2021-06-07 03:41] LABS: EOS % 0.1 % (0.0-4.0); GRAN % 62.3 % (42.2-75.2); LYMPH # 1.7 K/mm3 (1.2-3.4); LYMPH % 21.9 % (20.0-51.0); MEAN CELL VOLUME 90 fl (80.0-100.0); MEAN CORPUSCULAR HGB CONC 34 g/dl (33.0-37.0); MONO # 1.2 K/mm3 (0.1-0.6); MONO % 15.2 % (1.7-9.3); PLATELET COUNT 281 K/mm3 (130-400); RED BLOOD COUNT 2.69 M/mm3 (4.10-5.30); REDCELL DISTRIBUTION WIDTH-CV 16.9 % (11.5-14.5)
[2021-06-07 03:45] LABS: HEMATOCRIT 24.1 % (37.0-47.0); HEMOGLOBIN 8.1 g/dl (12.5-16.0); MEAN CORPUSCULAR HEMOGLOBIN 30 pg (27-31)
[2021-06-07 04:03] LABS: ALBUMIN 2.4 gm/dL (3.5-5.0); CALCIUM 7.6 mg/dL (8.4-10.2); CREATININE, serum 0.66 mg/dL (0.57-1.11); MAGNESIUM 1.7 mg/dL (1.6-2.6); PHOSPHOROUS 3.2 mg/dL (2.3-4.7); POTASSIUM 3.7 mmol/L (3.5-4.5)
--- NOTE | 2021-06-07 06:30 | NUR ---
ASSESSMENT COMPLETE FOR THIS SHIFT. PT LAYING IN BED WATCHING TV, ASKING FOR PAIN MEDICATION. PT GIVEN NORCO FOR PAIN. NORCO WAS EFFECTIVE PER PT. PT HAD AN H&H ORDERED TONIGHT, HGB WAS 6.9. HOSPITALIST ORDERED A UNIT OF BLOOD. BLOOD RAN WITHOUT INCIDENT. HBG UP TO 8.1. PT DENIED PALPITATIONS, N,V,D, SOB OR DIZZINESS. PT EXPRESSED NO OTHER NEEDS AT THIS TIME. CALL LIGHT WITHIN REACH.
--- NOTE | 2021-06-07 09:13 | NUR ---
PT IS CURRENTLY NPO FOR AN EGD. NO OTHER CONCERNS.
--- NOTE | 2021-06-07 13:00 | NUR ---
The patient is to have and EGD/colonoscopy today. The hemoglobin has not been stable and the clinical team will keep her until her hemoglobin is stable. Ela, with APS, states that she heard back from [facility] and confirmed they cannot take the patient back again until 06/15. SW contacted and updated the patient's sister, Shruthi. Shruthi states that she will assist with paying for a hotel for the patient, if she discharges before the . *Discharge plan: Hotel*
--- NOTE | 2021-06-07 13:42 | NUR ---
LATE ENTRY. PT NOT AVAILABLE GONE FOR COLONOSCOPY.
[2021-06-07 17:17] LABS: HEMATOCRIT 26.5 % (37.0-47.0); HEMOGLOBIN 8.9 g/dl (12.5-16.0)
[2021-06-07 21:13] LABS: HEMATOCRIT 25.7 % (37.0-47.0); HEMOGLOBIN 8.8 g/dl (12.5-16.0)
--- NOTE | 2021-06-07 21:24 | NUR ---
TX GIVEN VIA MOUTHPIECE, TOLERATED WELL. RN X 1 IN ROOM.
[2021-06-08] VITALS (12 sets, daily range): BP systolic 109–142; BP diastolic 59–90; PULSE 69–79; TEMP 97.6–98.7
--- NOTE | 2021-06-08 06:15 | NUR ---
ASSESSMENT COMPLETE FOR THIS SHIFT. PT LAYING IN BED WATCHING TV, WANTING TO KNOW IF IT WAS TIME FOR HER PAIN MEDS YET. PT GIVEN NORCO FOR PAIN. PT DENIED PALPITATIONS, SOB, N,V, OR DIZZINESS. AROUND 0530HRS, PT STATED SHE HAS HAD DIARRHEA SEVERAL TIMES TONIGHT, ALTHOUGH I HAVE BEEN IN HER ROOM SEVERAL TIMES TONIGHT AND SHE HAS NOT ONCE MENTION ANY DIARRHEA. WHEN CONFRONTED ABOUT IT, PT STATED SHE FORGOT TO MENTION IT AND THAT SHE DID TELL THE AID A COUPLE OF HOURS AGO. AID STATED SHE WAS JUST TOLD WHEN SHE CALLED ME. PT THEN WANTED TO KNOW IF IT WAS TIME FOR HER PAIN PILL. I TOLD HER NOT YET. PT EXPRESSED NO OTHER NEEDS AT THIS TIME. CALL LIGHT WITHIN REACH.
[2021-06-08 07:50] LABS: BASO % 0.2 % (0.0-2.0); EOS % 0.3 % (0.0-4.0); GRAN # 4.1 K/mm3 (1.4-6.5); GRAN % 63.9 % (42.2-75.2); LYMPH # 1.2 K/mm3 (1.2-3.4); LYMPH % 18.6 % (20.0-51.0); MEAN CELL VOLUME 93 fl (80.0-100.0); MEAN CORPUSCULAR HGB CONC 33 g/dl (33.0-37.0); MONO % 16.4 % (1.7-9.3); PLATELET COUNT 291 K/mm3 (130-400); RED BLOOD COUNT 2.45 M/mm3 (4.10-5.30); REDCELL DISTRIBUTION WIDTH-CV 17.2 % (11.5-14.5)
[2021-06-08 07:53] LABS: HEMATOCRIT 22.7 % (37.0-47.0); HEMOGLOBIN 7.4 g/dl (12.5-16.0); MEAN CORPUSCULAR HEMOGLOBIN 30 pg (27-31)
[2021-06-08 08:11] LABS: ALBUMIN 2.3 gm/dL (3.5-5.0); CALCIUM 7.7 mg/dL (8.4-10.2); CREATININE, serum 0.64 mg/dL (0.57-1.11); MAGNESIUM 1.7 mg/dL (1.6-2.6); PHOSPHOROUS 3.4 mg/dL (2.3-4.7)
--- NOTE | 2021-06-08 08:49 | NUR ---
PT REPORTING PAIN TO "SIDES AND SIDES OF NECK" RATED AT 8/10. PT CALM DEMEANOR AND PLEASANT, NO GRIMACING, REPORTS CRAMPING TO ABD AND DIARRHEA WITH CLEAR STOOL, INSTRUCTED PT TO ALLOW STAFF TO VISUALIZE NEXT BM. PT REPORTS 6 STOOLS SINCE APPROX 0300. PT ASSESSMENT PERFORMED, ATE 100% BREAKFAST, NO OTHER NEEDS
[2021-06-08 12:37] LABS: CLOSTRIDIUM DIFF A/B NEG; CLOSTRIDIUM DIFF A/B INTERP No C.diff present
--- NOTE | 2021-06-08 13:03 | NUR ---
BLOOD VERIFIED WITH MALENA RN, PT EDUCATED ON S/S OF TRANSFUSION REACTION, STAYED WITH PT FOR FIRST 15MIN TO MONITOR FOR COMPLICATIONS. VITALS TAKEN BEFORE TRANSFUSION INITIATION.
--- NOTE | 2021-06-08 13:15 | NUR ---
FINISHING FIRST 15 MIN, PT DENIES S/S OF TRANSFUSION REACTION, WARM BLANKET PROVIDED FOR PT PER PT REQUEST
--- NOTE | 2021-06-08 15:35 | NUR ---
BLOOD TRANSFUSION COMPLETED, PT DENYING S/S OF TRANSFUSION REACTION. PT REPORTING KPAD PROVIDED IS HELPING TO RELIEVE BACK PAIN BUT IT IS STILL PRESENT (WAS PRESENT BEFORE TRANSFUSION BEGAN
--- NOTE | 2021-06-08 18:13 | NUR ---
PT YUNI, ROSA MARIAX4, REPORTING DIARRHEA, CDIFF NEGATIVE, ATTEMPTED TO CALL DR. CANAS AND UDAY BUTCHER FOR IMMODIUM BUT NO ANSWER AT THIS TIME. EDUCATED ON FLUID RESTRICTION BUT PT REQUIRES FREQUENT REMINDERS.
--- NOTE | 2021-06-08 18:38 | NUR ---
GRAHAM BUTCHER PLACING IMMODIUM ORDER
[2021-06-08 18:41] LABS: HEMATOCRIT 26.2 % (37.0-47.0); HEMOGLOBIN 8.7 g/dl (12.5-16.0)
--- NOTE | 2021-06-08 23:33 | NUR ---
PT REFUSED TX AT THIS TIME. PT STATED "I FEEL YUCKY AND I'M ABOUT TO GET IN THE SHOWER."
[2021-06-09 00:08] VITALS: BP 109/65; PULSE 74; TEMP 98.1
[2021-06-09 03:54] LABS: COLLECTION METHOD CLEAN CATCH
[2021-06-09 04:02] LABS: PH 7 (5-8); SQUAMOUS EPITHELIAL 0-2 /hpf (0-10); URINE APPEARANCE Clear (CLEAR/HAZY); URINE BACTERIA None Seen /hpf (NONE SEEN); URINE BILIRUBIN Negative (NEGATIVE); URINE BLOOD Negative (NEGATIVE); URINE COLOR Yellow (YELLOW); URINE GLUCOSE Negative (NEGATIVE); URINE KETONE Negative (NEGATIVE); URINE LEUKOCYTE ESTERASE Negative (NEGATIVE); URINE NITRATE Negative (NEGATIVE); URINE PROTEIN(semi-quant) Negative (NEGATIVE); URINE RBC 0-2 /hpf (0-2); URINE UROBILINOGEN Negative (NEGATIVE)
[2021-06-09 05:04] VITALS: BP 110/50; PULSE 66; TEMP 98.2
--- NOTE | 2021-06-09 06:03 | NUR ---
Tx not given at this timing, pt sleeping and requested that I not wake her.
[2021-06-09 06:32] LABS: BASO % 0.1 % (0.0-2.0); EOS # 0.1 K/mm3 (0.0-0.7); EOS % 0.6 % (0.0-4.0); GRAN # 5.4 K/mm3 (1.4-6.5); GRAN % 61.9 % (42.2-75.2); LYMPH # 1.9 K/mm3 (1.2-3.4); LYMPH % 21.9 % (20.0-51.0); MEAN CELL VOLUME 92 fl (80.0-100.0); MEAN CORPUSCULAR HGB CONC 33 g/dl (33.0-37.0); MEAN PLATELET VOLUME 8.9 fl (7.4-10.4); MONO # 1.3 K/mm3 (0.1-0.6); MONO % 15.2 % (1.7-9.3); PLATELET COUNT 327 K/mm3 (130-400); REDCELL DISTRIBUTION WIDTH-CV 17.2 % (11.5-14.5)
[2021-06-09 06:36] LABS: HEMATOCRIT 26.8 % (37.0-47.0); HEMOGLOBIN 8.8 g/dl (12.5-16.0); MEAN CORPUSCULAR HEMOGLOBIN 30 pg (27-31)
[2021-06-09 06:49] LABS: ALBUMIN 2.3 gm/dL (3.5-5.0); CALCIUM 7.7 mg/dL (8.4-10.2); CREATININE, serum 0.65 mg/dL (0.57-1.11); MAGNESIUM 1.6 mg/dL (1.6-2.6); PHOSPHOROUS 3.2 mg/dL (2.3-4.7); POTASSIUM 3.8 mmol/L (3.5-4.5)
--- NOTE | 2021-06-09 08:04 | NUR ---
PATIENT UP IN RECLINER, PERFORMING PERSONAL HYGINE. NO C/O PAIN, NO REQUESTS AT THIS TIME.
[2021-06-09 08:28] VITALS: BP 116/66; PULSE 78; TEMP 98
--- NOTE | 2021-06-09 11:50 | NUR ---
PATIENT UP IN RECLINER. C/O STOMACH AND BACK PAIN. USING KPAD FOR HEAT FOR BACK PAIN. ANXIOUS TO D/C TODAY. REQUESTING TAXI VOUCHER. NON COMPLIANT FOR FLUID RESTRICTION. PAIN MEDS PROVIDED. POTASSIUM PROTOCOL FOLLOWED FOR 3.8. PREPARING FOR DISCHARGE.
[2021-06-09 12:23] VITALS: BP 113/68; TEMP 98
[2021-06-09 12:52] LABS: HEMATOCRIT 28.4 % (37.0-47.0); HEMOGLOBIN 9.5 g/dl (12.5-16.0)
--- NOTE | 2021-06-09 14:10 | NUR ---
TX REFUSED, PT DISCHARGED
--- NOTE | 2021-06-09 16:00 | NUR ---
PATIENT DRESSED SELF, [employer] MARCE MCDONOUGH REMOVED PICC LINE, PATIENT REMAINED IN BED FOR REQUIRED 30MIN. PRESCRIPTIONS SENT TO [facility] IN [place]. PATIENT A&O ON D/C. REQUESTED PAIN MEDS AHEAD OF ADMIN TIME. AUTHOR UNCOMFORTABLE WITH ADMINISTERING PATIENT NORCO WHEN PATIENT WILL BE DROPPED OF AT HOTEL WITH NO FAMILY OR SUPPORT CARE. OFFERED TYLENOL, PATIENT REFUSED. EDUCATION ON CHF, AND NEW MEDICATIONS GIVEN. DISCHARGED TO [facility] THROUGH ER PICK-UP AT [phone].
--- NOTE | 2021-06-09 17:20 | NUR ---
Dr. Grider informs patient will discharge today; plan of care confirmed. Greenskeeper attempts to contact patient sister José Luis ([phone]) and patient phone no longer accepting calls at this time. This Greenskeeper met with patient, who confirms her sister is working now but did coordinate a hotel stay for her at [facility] in [place] for today. This Greenskeeper confirms with patient nurse and patient which medications she will need to fill at discharge and voucher is given for pickup at [facility] on [address]; Pharmacist at [facility] confirms ludwig of medications. Nurse updated; patient is ready to discharge. Taxi voucher coordinated for patient transport by [employer] taxi service to [facility] to supervisor picking crew medications and then to hotel in [place]. Nursing updated on plan. *Discharge plan: Patient discharging with medication/prescription voucher and taxi voucher to [facility]. [employer] to transport, will stop to supervisor picking crew medications en-route.*
== END 2021-06-09 15:52 | disposition home or self-care (01) | DRG 291 ==
LOC: COL.ER 17:59 → ICU 23:29 → MEDICAL 23:29 → COL.ER 23:51 → MEDICAL 05-31 13:42
PROVIDERS: Emergency Medicine; Internal Medicine; Internal Medicine Gastroenterology; Nurse Practitioner Family; Physician Assistant; Student in an Organized Health Care Education/Training Program; ADMIT Internal Medicine
PROC: 02HV33Z Insertion of Infusion Device into Superior Vena Cava, Percutaneous Approach (ICD-10-PCS; principal; 2021-05-31)
PROC: 0DJD8ZZ Inspection of Lower Intestinal Tract, Via Natural or Artificial Opening Endoscopic (ICD-10-PCS; 2021-06-07)
PROC: 0DJ08ZZ Inspection of Upper Intestinal Tract, Via Natural or Artificial Opening Endoscopic (ICD-10-PCS; 2021-06-07 14:30)
DX: I11.0 Hypertensive heart disease with heart failure (principal); J96.01 Acute respiratory failure with hypoxia; I50.23 Acute on chronic systolic (congestive) heart failure; J12.9 Viral pneumonia, unspecified; S22.41XA Multiple fractures of ribs, right side, initial encounter for closed fracture; I48.92 Unspecified atrial flutter; E87.1 Hypo-osmolality and hyponatremia; J44.1 Chronic obstructive pulmonary disease with (acute) exacerbation; E87.2 Acidosis; J44.0 Chronic obstructive pulmonary disease with (acute) lower respiratory infection; I42.9 Cardiomyopathy, unspecified; F17.210 Nicotine dependence, cigarettes, uncomplicated; I44.7 Left bundle-branch block, unspecified; E87.6 Hypokalemia; E87.8 Other disorders of electrolyte and fluid balance, not elsewhere classified; E83.51 Hypocalcemia; G89.29 Other chronic pain; N64.9 Disorder of breast, unspecified; K80.20 Calculus of gallbladder without cholecystitis without obstruction; F10.10 Alcohol abuse, uncomplicated; E78.5 Hyperlipidemia, unspecified; K21.9 Gastro-esophageal reflux disease without esophagitis; E66.9 Obesity, unspecified; N61.1 Abscess of the breast and nipple; R91.1 Solitary pulmonary nodule; J98.01 Acute bronchospasm; K25.9 Gastric ulcer, unspecified as acute or chronic, without hemorrhage or perforation; B97.89 Other viral agents as the cause of diseases classified elsewhere; E83.42 Hypomagnesemia; I48.0 Paroxysmal atrial fibrillation; D64.9 Anemia, unspecified; M79.81 Nontraumatic hematoma of soft tissue; Z59.00 Homelessness unspecified; I25.2 Old myocardial infarction; Z68.25 Body mass index [BMI] 25.0-25.9, adult
CPT/HCPCS: 99223-AI; 99232-AI; 99233-AI; 99239; A4314; C1751; J0696; J1650; J1885; J1940; J2060; J2270; J2704; J2920; J2930; J3010; J3411; J3475; J3480; J7512; P9016; Q9967